=== PATIENT | female | born 1980 | race Asian ===

== ENCOUNTER → 2024-03-24 11:51 | Outpatient (CLI) | payer OTHER, SELFPAY ==
[2024-03-24 13:19] LABS: HCG Quantitative /Beta subunit < 2.39 mIU/mL
[2024-03-24 14:46] LABS: Progesterone, Total 0.89 ng/mL
[2024-03-24 15:02] LABS: Estradiol, Total 176.2 pg/mL
== END ==
PROVIDERS: Referring Provider Obstetrics & Gynecology; Visit Provider Obstetrics & Gynecology
DX: Z31.69 Encounter for other general counseling and advice on procreation (principal)
CPT/HCPCS: 36415; 82670; 84144; 84702